=== PATIENT | female | born 1970 | race African-American/Black ===

== ENCOUNTER 2017-08-13 10:58 | Emergency (ER) | payer SELFPAY ==
[~2017-08-13] VITALS: Ht 157.5 cm; Wt 72.0 kg
[2017-08-13 11:24] VITALS: BP 135/85; PULSE 100; RESP 17; TEMP 98.4; O2SAT 100
[2017-08-13] MEDS ORDERED: PENI500T PO (11:56)
--- NOTE | 2017-08-13 11:56 | PD ---
HPI Chief Complaint: Pain: Acute or Chronic Time Seen by Provider: 11:34 Travel History International Travel<30 days: No Contact w/Intl Traveler<30days: No Traveled to known affect area: No History of Present Illness HPI 47-year-old female presents to the emergency room for evaluation of 2 separate complaints. First complaint is left knee pain after falling on the bus yesterday. She has been ambulatory since then. She also had her right knee/ leg and right arm but her biggest concern is her left knee. No paresthesias. Pain is worsened when she pushes on it. Second complaint is dental pain that has been ongoing for a few days. Patient states she feels like the dental pain is radiating into her face and under her eyes. She has not taken anything or done anything for her symptoms. PFSH Past Medical History Diabetes: Yes Patient Takes Glucophage: No Influenza Vaccination: No ?: Not Past Surgical History Surgical History: No Previous Surgery Social History Alcohol Use: No Tobacco Use: Yes (3 CIGS A DAY ) Substance Use: No Allergies-Medications (Allergen,Severity, Reaction): Coded Allergies: No Known Allergies (Unverified , 08/13/17) Reported Meds & Prescriptions Reported Meds & Active Scripts Active Penicillin V Potassium 500 Mg Tab 500 Mg PO Q8H 7 Days Review of Systems Except as stated in HPI: all other systems reviewed are Neg Physical Exam Narrative GENERAL: Well-nourished, well-developed female no acute distress. Afebrile. Ambulatory. SKIN: Focused skin assessment warm/dry. No erythema or ecchymosis. HEAD: Normocephalic. EYES: No scleral icterus. No injection or drainage. NECK: Supple, trachea midline. No JVD or lymphadenopathy. DENTAL: No malocclusion. Significant decay throughout. There is a small abscess under tooth #20 that is not amenable to incision and drainage. No surrounding erythema or edema. CARDIOVASCULAR: Regular rate and rhythm without murmurs, gallops, or rubs. RESPIRATORY: Breath sounds equal bilaterally. No accessory muscle use. MSK: Full range of motion of bilateral lower extremities. 2+ dorsalis pedis pulse on the left. No obvious edema. There is mild tenderness over the left patella and distal knee. Data Data Last Documented VS Vital Signs Date Time Temp Pulse Resp B/P (MAP) Pulse Ox O2 Delivery O2 Flow Rate FiO2 08/13/17 11:24 98.4 100 17 135/85 (102) 100 Orders Orders Knee, Ltd (1 Or 2vws) (08/13/17 ) Ed Discharge Order (08/13/17 12:28) [facility] Medical Decision Making Medical Screen Exam Complete: Yes Emergency Medical Condition: Yes Medical Record Reviewed: Yes Differential Diagnosis Strain, sprain, contusion, dental abscess, dental decay Narrative Course 47 year-old female presents to the emergency room for evaluation of 2 separate complaints. Main complaint is left knee pain after falling on a bus yesterday. She has been ambulatory since then. She has not taken anything for symptoms. Denies paresthesias. Physical exam is unremarkable. There is no edema, erythema, ecchymosis. Patient has full range of motion. Very mild tenderness to palpation especially over the patella. 2+ dorsalis pedis pulse. X-rays negative. This is contusion. Second complaint is dental pain for a few days. Patient admits to having poor dental hygiene. There appears to be a developing abscess under tooth #20 that is not amendable to incision and drainage at this time. Patient discharged with prescription for Penicillin VK. Told to follow- up with a primary care physician or return for worsening symptoms. She understands and agrees to plan. Diagnosis Primary Impression: Dental abscess Additional Impression: Knee contusion Qualified Codes: S80.02XA - Contusion of left knee, initial encounter Referrals: Primary Care Physician Additional Instructions: Pen-VK as directed, until gone. Apply ice to the affected areas as needed for pain. Follow-up with a dentist. Return for worsening symptoms. Med/Other Pt SpecificInfo: Prescription(s) given Scripts Penicillin V Potassium (Penicillin V Potassium) 500 Mg Tab 500 MG PO Q8H for Infection for 7 Days, #21 TAB 0 Refills Prov: Cortney Galindo MD 08/13/17 Disposition: 01 DISCHARGE HOME Condition: Stable Carrie Aponte Aug 13, 2017 11:56
--- NOTE | 2017-08-13 12:23 | RADRPT ---
EXAM DATE/TIME: 08/13/2017 12:04 [facility] COMPARISON: No previous studies available for comparison. INDICATIONS : Left knee pain. Patient stated left knee pain since yesterday when she hit the knee on the bus. MEDICAL HISTORY : None. SURGICAL HISTORY : None. ENCOUNTER: Initial ACUITY: 2 days PAIN SCORE: 8/10 LOCATION: Left anterior knee FINDINGS: Two view examination of the left knee demonstrates no evidence of fracture or dislocation. Bony mine ralization is normal. The suprapatellar soft tissues have a normal configuration. CONCLUSION: The osseous structures are grossly intact. Ben Mejia MD on August 13, 2017 at 12:21 Board Certified Radiologist. This report was verified electronically.
== END 2017-08-13 12:53 | disposition home or self-care (01) ==
LOC: NEPK 10:58
DX: K04.7 Periapical abscess without sinus (principal); S80.02XA Contusion of left knee, initial encounter; E11.9 Type 2 diabetes mellitus without complications; F17.210 Nicotine dependence, cigarettes, uncomplicated; V79.88XA Bus occupant (driver) (passenger) injured in other specified transport accidents, initial encounter
CPT/HCPCS: 73560; 99283